=== PATIENT | female | born 1960 | race Caucasian/White ===

== ENCOUNTER 2024-11-29 02:46 | Inpatient (IN) | payer OTHER ==
[~2024-11-29] VITALS: Ht 170.2 cm; Wt 66.0 kg
[2024-11-29] MEDS: METHADONE HCL 10 MG/5 ML SOLUTION ORAL.SYG PO ONE (05:54)
[2024-11-29 08:08] LABS: APPEARANCE,URINE HAZY (CLEAR); BILIRUBIN,URINE NEGATIVE (NEGATIVE); COLOR,URINE LIGHT YELLOW (YELLOW); GLUCOSE, URINE (UA) NEGATIVE (NEGATIVE); KETONES,URINE NEGATIVE (NEGATIVE); LEUKOCYTE ESTERASE ,URINE NEGATIVE (NEGATIVE); NITRATE,URINE POSITIVE (NEGATIVE); OCCULT BLOOD,URINE NEGATIVE (NEGATIVE); PROTEIN,URINE NEGATIVE (NEGATIVE); SPECIFIC GRAVITIY, URINE 1.012 (1.003-1.030); UROBILINOGEN,URINE <=1.0 mg/dL (<=1.0)
[2024-11-29 08:18] LABS: BACTERIA,URINE Many /HPF (None Seen); RBC,URINE None Seen /HPF (0-2); SQUAMOUS EPITHELIAL CELL,UR Few /LPF (None Seen); WBC,URINE 0-2 /HPF (0-5)
[2024-11-29 08:27] LABS: ALCOHOL, URINE DRUG SCREEN NEGATIVE (NEGATIVE); AMPHET/METH SCREEN,URINE NEGATIVE (NEGATIVE); BARBITURATE SCREEN, URINE NEGATIVE (NEGATIVE); BENZODIAZEPINES SCREEN,URINE NEGATIVE (NEGATIVE); CANNABINOID SCREEN,URINE NEGATIVE (NEGATIVE); COCAINE SCREEN,URINE NEGATIVE (NEGATIVE); METHADONE SCREEN, URINE POSITIVE (NEGATIVE); OPIATE SCREEN,URINE NEGATIVE (NEGATIVE); PHENCYCLIDINE SCREEN,URINE NEGATIVE (NEGATIVE)
[2024-11-29 09:16] LABS: BASOPHILS % (AUTO) 0.5 % (0.0-2.0); EOSINOPHILS % (AUTO) 0.5 % (1.0-6.0); HEMATOCRIT 42.4 % (36-46); HEMOGLOBIN 14.5 g/dL (12.0-16.0); LYMPHOCYTES # (AUTO) 1.5 K/uL (1.0-4.8); LYMPHOCYTES % (AUTO) 30.3 % (22.0-44.0); MEAN CORPUSCULAR HGB CONC 34.1 G/dL (31.0-37.0); MEAN CORPUSCULAR VOLUME 91 fL (80-100); MONOCYTES # (AUTO) 0.4 K/uL (0.1-1.0); MONOCYTES % (AUTO) 8.5 % (2.0-9.0); NEUTROPHILS # (AUTO) 2.9 K/uL (1.8-7.7); NEUTROPHILS % (AUTO) 60.2 % (40.0-70.0); PLATELET COUNT (AUTO) 243 K/uL (150-450); RED BLOOD CELL COUNT(AUTO) 4.67 MIL/uL (4.00-5.20); WHITE BLOOD COUNT (AUTO) 4.8 K/uL (4.5-11.0)
[2024-11-29 09:25] LABS: CALCIUM, TOTAL 9.2 mg/dL (8.8-10.5); CREATININE 1.01 mg/dL (0.60-1.30); POTASSIUM 4.2 mmol/L (3.5-5.1)
[2024-11-29] MEDS ORDERED: ONDANSETRON HCL 4 MG/2 ML VIAL IVP PRN (09:30)
[2024-11-29] MEDS ORDERED: IPRATROPIUM BROMIDE 0.5 MG/2.5 ML NEB SOLUTION NEB PRN (09:30)
[2024-11-29] MEDS ORDERED: ALBUTEROL SULFATE 2.5 MG/0.5 ML NEB SOLUTION NEB PRN (09:30)
[2024-11-29] MEDS ORDERED: KETOROLAC TROMETHAMINE 15 MG/ML VIAL IVP PRN (09:30)
[2024-11-29] MEDS: LORazepam 0.5 MG TABLET PO PRN (14:29)
[2024-11-29] MEDS: ACETAMINOPHEN 325 MG TABLET PO PRN (14:29)
[2024-11-29 14:36] VITALS: BP 109/60; PULSE 74; RESP 16; TEMP 98.1; O2SAT 99
[2024-11-29] MEDS: HEPARIN SODIUM,PORCINE 5,000 UNITS/ML VIAL SQ SCH (17:25)
[2024-11-29] MEDS: NICOTINE POLACRILEX 2 MG GUM CHEW PRN (17:29)
[2024-11-29 19:20] VITALS: BP 108/64; PULSE 71; RESP 18; TEMP 98.3; O2SAT 98
[2024-11-29] MEDS: DOCUSATE SODIUM 100 MG CAPSULE PO SCH (20:17)
[2024-11-30 05:30] VITALS: BP 126/69; PULSE 72; RESP 20; TEMP 98; O2SAT 98
[2024-11-30 07:47] LABS: BASOPHILS % (AUTO) 0.6 % (0.0-2.0); HEMATOCRIT 41.2 % (36-46); HEMOGLOBIN 14.1 g/dL (12.0-16.0); LYMPHOCYTES # (AUTO) 2.1 K/uL (1.0-4.8); LYMPHOCYTES % (AUTO) 40.6 % (22.0-44.0); MEAN CORPUSCULAR HEMOGLOBIN 31.1 pg (26.0-34.0); MEAN CORPUSCULAR HGB CONC 34.3 G/dL (31.0-37.0); MEAN CORPUSCULAR VOLUME 91 fL (80-100); MONOCYTES # (AUTO) 0.5 K/uL (0.1-1.0); MONOCYTES % (AUTO) 9.8 % (2.0-9.0); NEUTROPHILS # (AUTO) 2.4 K/uL (1.8-7.7); PLATELET COUNT (AUTO) 239 K/uL (150-450); RED BLOOD CELL COUNT(AUTO) 4.54 MIL/uL (4.00-5.20); RED CELL DISTRIBUTION WIDTH 13.9 % (11.5-14.5)
[2024-11-30 07:57] VITALS: BP 115/77; PULSE 66; RESP 18; TEMP 98; O2SAT 96
[2024-11-30 08:03] LABS: ANION GAP 6 mmol/L (8-16); CALCIUM, TOTAL 8.9 mg/dL (8.8-10.5); CARBON DIOXIDE 29 mmol/L (22-29); CHLORIDE 104 mmol/L (98-107); CREATININE 0.89 mg/dL (0.60-1.30); GLOMERULAR FILTR. RATE CALC > 60 mL/min (>60); GLUCOSE,RANDOM 90 mg/dL (70-110); POTASSIUM 4.4 mmol/L (3.5-5.1); SODIUM SERUM 139 mmol/L (136-145); UREA NITROGEN, BLOOD 19 mg/dL (7-18)
[2024-11-30] MEDS: METHADONE HCL 10 MG TABLET PO SCH (09:47)
[2024-11-30] MEDS ORDERED: CefTRIAXone 1 GM/DEXTROSE 50 ML IV SCH (10:00)
[2024-11-30] MEDS ORDERED: BICT1TAB PO (10:46)
[2024-11-30] MEDS ORDERED: EMTR1TAB53 PO (10:46)
[2024-11-30] MEDS ORDERED: IBUP-1506 PO (10:46)
[2024-11-30] MEDS ORDERED: DOLU50TA PO (10:46)
[2024-11-30] MEDS ORDERED: DOLUTEGRAVIR SODIUM 50 MG TABLET PO SCH (11:00)
[2024-11-30] MEDS ORDERED: EMTRICITABINE/TENOFOVIR 200-300 MG TABLET PO SCH (11:00)
[2024-11-30] MEDS: LIDOCAINE 5% TRANSDERMAL PATCH TD SCH (13:11)
[2024-11-30] MEDS: CEPHALEXIN MONOHYDRATE 500 MG CAPSULE PO SCH (13:11)
[2024-11-30] MEDS: BICTEGRAV/EMTRICIT/TENOFOV ALA 50-200-25 MG TABLET PO SCH (13:12)
[2024-11-30] MEDS: -LIDODERM PATCH NOTE- MISC SCH (21:39)
[2024-11-30 22:00] VITALS: BP 100/74; PULSE 72; RESP 18; TEMP 98.1; O2SAT 97
[2024-12-01 06:28] VITALS: BP 112/75; PULSE 77; RESP 18; TEMP 98.5; O2SAT 98
[2024-12-01 08:22] VITALS: BP 122/67; PULSE 63; RESP 18; TEMP 98.7; O2SAT 99
[2024-12-01] MEDS ORDERED: METHADONE HCL 10 MG TABLET PO SCH (09:00)
[2024-12-01] MEDS: METHADONE HCL 10 MG TABLET PO SCH (09:21)
[2024-12-01] MEDS: LORazepam 1 MG TABLET PO PRN (13:33)
[2024-12-01 15:00] VITALS: BP 156/74; PULSE 72; RESP 18; TEMP 98.7; O2SAT 98
[2024-12-01 15:56] VITALS: BP 115/71; PULSE 77; RESP 18; TEMP 97.7; O2SAT 96
[2024-12-01 19:47] VITALS: BP 101/67; PULSE 81; RESP 19; TEMP 98.5; O2SAT 96
[2024-12-02 05:37] VITALS: BP 117/65; PULSE 64; RESP 18; TEMP 97.9; O2SAT 96
[2024-12-02 08:06] VITALS: BP 118/72; PULSE 70; RESP 18; TEMP 98.2; O2SAT 98
[2024-12-02] MEDS ORDERED: METHADONE HCL 10 MG TABLET PO SCH (09:00)
[2024-12-02 12:06] LABS: HIV 1-2 SCREEN 4TH GEN W/RFLX Preliminary Reactive (Non Reactive); HIV INTERPRETATION HIV-1 Positive; HIV-1 ANTIBODY(MULTISPOT) Reactive (Non Reactive); HIV-2 ANTIBODY(MULTISPOT) Non Reactive (Non Reactive)
[2024-12-02 16:12] VITALS: BP 114/69; PULSE 69; RESP 18; TEMP 98; O2SAT 97
[2024-12-02 20:13] VITALS: BP 102/51; PULSE 81; RESP 16; TEMP 98.4; O2SAT 98
[2024-12-03 05:21] VITALS: BP 112/70; PULSE 70; RESP 18; TEMP 97.9; O2SAT 98
[2024-12-03 07:51] VITALS: BP 126/77; PULSE 83; RESP 18; TEMP 98.2; O2SAT 100
[2024-12-03 09:39] VITALS: BP 108/68; PULSE 78; RESP 17; TEMP 98.1; O2SAT 98
[2024-12-03 18:32] VITALS: BP 109/64; PULSE 84; RESP 20; TEMP 98.9; O2SAT 96
[2024-12-03 19:46] VITALS: BP 112/66; PULSE 85; RESP 18; TEMP 98.7; O2SAT 97
[2024-12-03] MEDS: HydrOXYzine HCL 25 MG TABLET PO SCH (20:00)
[2024-12-03] MEDS ORDERED: ZOLPIDEM TARTRATE 5 MG TABLET PO ONE (21:15)
[2024-12-04 04:59] VITALS: BP 109/68; PULSE 72; RESP 18; TEMP 97.8; O2SAT 99
[2024-12-04 08:14] VITALS: BP 116/66; PULSE 73; RESP 18; TEMP 98.2; O2SAT 100
[2024-12-04] MEDS ORDERED: ACET-2247 PO (12:54)
[2024-12-04] MEDS ORDERED: HYDR-4527 PO (12:54)
[2024-12-04] MEDS ORDERED: CEPH-558 PO (12:54)
[2024-12-04] MEDS ORDERED: LIDO700A15 TP (12:56)
[2024-12-04 15:12] VITALS: BP 114/71; PULSE 80; RESP 18; TEMP 98.3; O2SAT 99
== END 2024-12-04 20:55 | DRG 897 ==
LOC: EMS 02:51 → EDH 09:16 → UNDOADMIN 12:28 → EDH 12:28 → 6S 13:28 → EDH 13:28
PROVIDERS: ADMIT Internal Medicine; ATTEND Internal Medicine
DX: F11.93 Opioid use, unspecified with withdrawal (principal); E87.3 Alkalosis; N39.0 Urinary tract infection, site not specified; N18.30 Chronic kidney disease, stage 3 unspecified; Z88.0 Allergy status to penicillin; Z91.199 Patient's noncompliance with other medical treatment and regimen due to unspecified reason; Z79.899 Other long term (current) drug therapy
CPT/HCPCS: 80048; 80307; 81001; 83735; 85025; 87077; 87086; 87186; 87389; 99285; J0696; J1644